=== PATIENT | female | born 1990 | race Caucasian/White ===

== ENCOUNTER 2019-09-13 08:12 | Day surgery (SDC) | payer MEDICAID ==
[~2019-09-13] VITALS: Ht 180.3 cm; Wt 112.5 kg
[2019-09-13] MEDS ORDERED: ONDANSETRON HCL 4 MG/2 ML VIAL IVP ONE (10:25)
[2019-09-13] MEDS ORDERED: fentaNYL CITRATE 250 MCG/5 ML AMP IV ONE (10:25)
[2019-09-13] MEDS ORDERED: SEVOFLURANE 15 MIN GAS INH ONE (10:25)
[2019-09-13] MEDS ORDERED: BUPIVACAINE /PF 0.5% 30 ML VIAL INJ ONE (10:25)
[2019-09-13] MEDS ORDERED: NS IRRIG SOLN 1000 ML IR ONE (10:25)
[2019-09-13] MEDS ORDERED: ROCURONIUM BROMIDE 10 MG/ML (ZEMURON) IV ONE (10:25)
[2019-09-13] MEDS ORDERED: MIDAZOLAM HCL 5 MG/5 ML VIAL IVP ONE (10:25)
[2019-09-13] MEDS ORDERED: PROPOFOL 200MG/ 20ML VIAL (DIPRIVAN) IV ONE (10:25)
[2019-09-13] MEDS ORDERED: LR 1,000 ML IV SCH (10:54)
[2019-09-13] MEDS ORDERED: MORPHINE 4 MG/ML INJ. SYRINGE IVP PRN ×2 (11:00)
[2019-09-13] MEDS ORDERED: METOCLOPRAMIDE HCL 10 MG/2 ML VIAL IVP PRN (11:00)
[2019-09-13] MEDS: MORPHINE 4 MG/ML INJ. SYRINGE IVP PRN ×2 (11:41→11:56)
[2019-09-13] MEDS ORDERED: MORPHINE 4 MG/ML INJ. SYRINGE ONE (11:55)
[2019-09-13 13:46] VITALS: BP_SYST 138
== END 2019-09-13 13:40 | disposition home or self-care (01) ==
LOC: SDS 08:12 → SMU 08:12 → SDS 13:40
PROVIDERS: ATTEND Obstetrics & Gynecology
DX: Z30.2 Encounter for sterilization (principal); I10 Essential (primary) hypertension; D64.9 Anemia, unspecified; E11.9 Type 2 diabetes mellitus without complications; F41.9 Anxiety disorder, unspecified; E66.01 Morbid (severe) obesity due to excess calories; Z68.34 Body mass index [BMI] 34.0-34.9, adult
CPT/HCPCS: 58670; C1727; J2250; J2270; J2405; J2704; J3010; J3490